=== PATIENT | male | born 1995 | race American Indian/Alaskan Native ===

== ENCOUNTER 2018-12-16 13:16 | Emergency (ER) | payer OTHER ==
[2018-12-16 13:33] VITALS: BP 135/93
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
--- NOTE | 2018-12-16 15:34 | Cat Scan Report ---
CT HEAD WITHOUT CONTRAST INDICATION / CLINICAL INFORMATION: head injury with dizziness and nausea. TECHNIQUE: Axial imaging performed from the skull apex through the skull base without the use of cont rast. Sagittal and coronal reformatted images. All CT scans at this location are performed using CT dose reduction for ALARA by means of automated exposure control. COMPARISON: None available. FINDINGS: CEREBRAL PARENCHYMA: No significant abnormality. No acute territorial infarct. HEMORRHAGE: None. EXTRA-AXIAL SPACES: A small arachnoid cyst is identified in the right perimesencephalic cistern measu ring 2.1 x 1.1 cm. VENTRICULAR SYSTEM: Normal in size and morphology for the patient's age. MIDLINE SHIFT OR HERNIATION: None. CEREBELLUM / BRAINSTEM: No significant abnormality. CALVARIUM: No significant abnormality. ORBITS: Normal as visualized. PARANASAL SINUSES / MASTOID AIR CELLS: Normal as visualized. SOFT TISSUES of HEAD: No significant abnormality. ADDITIONAL FINDINGS: None. IMPRESSION: No acute intracranial abnormality. Incidental subarachnoid cyst as described. Signer Name: Conor Anaya Jr, MD Signed: 12/16/2018 3:30 PM Workstation Name: [id number]
[2018-12-16] MEDS ORDERED: MOTRIN PO ONE (16:03)
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
== END 2018-12-16 16:36 | disposition home or self-care (01) ==
LOC: ED 13:16
DX: M54.9 Dorsalgia, unspecified (principal); M54.2 Cervicalgia; R11.0 Nausea; R51 Headache; F17.200 Nicotine dependence, unspecified, uncomplicated; F12.10 Cannabis abuse, uncomplicated; Z79.899 Other long term (current) drug therapy; V49.50XA Passenger injured in collision with unspecified motor vehicles in traffic accident, initial encounter; Y93.89 Activity, other specified; Y92.410 Unspecified street and highway as the place of occurrence of the external cause; Y99.8 Other external cause status
CPT/HCPCS: 70450; 72040